=== PATIENT | female | born 1950 | race Two or more races ===

== ENCOUNTER 2016-08-09 08:26 | Outpatient (CLI) | payer MEDICARE, OTHER | END 2016-08-09 08:27 | disposition home or self-care (01) | DX: R00.2 Palpitations (principal) ==

== ENCOUNTER 2016-10-31 10:05 | Outpatient (CLI) | payer MEDICARE, OTHER | END 2016-10-31 10:06 | disposition home or self-care (01) | DX: Z72.89 Other problems related to lifestyle (principal) ==

== ENCOUNTER 2016-11-06 07:38 | Outpatient (CLI) | payer MEDICARE, OTHER ==
--- NOTE | 2016-11-06 09:38 | Ultrasound Report ---
PELVIC ULTRASOUND: 11/06/2016 CLINICAL INDICATION: Followup endometrial thickening. COMPARISON: 08/17/2014 TECHNIQUE: Transabdominal pelvic ultrasound performed for global evaluation. Transvaginal pelvic ult rasound performed for detailed evaluation. Real-time scanning performed and static images obtained. FINDINGS: The uterus is anteverted, measuring 5.4 x 3.4 x 2.0 cm. There is persistent nodular thick ening of the left fundal myometrium, measuring 0.7 x 0.7 x 0.4 cm. A fundal posterior leiomyoma is a gain seen, measuring 1.1 x 1.0 x 1.0 cm. The ovaries are unremarkable, with the right measuring 1.4 x 1.0 x 0.7 cm and the left measuring 1.8 x 1.5 x 0.8 cm. No free fluid is present. IMPRESSION: STABLE APPEARANCE OF THE UTERUS, WITH NODULAR THICKENING OF THE LEFT FUNDAL MYOMETRIUM A ND A FUNDAL LEIOMYOMA. JOB #: [id number] EXT JOB #:[id number]
== END 2016-11-06 07:39 | disposition home or self-care (01) ==
LOC: DI 07:38
PROVIDERS: ATTEND Physician Assistant Medical
DX: R93.8 Abnormal findings on diagnostic imaging of other specified body structures (principal); D25.9 Leiomyoma of uterus, unspecified
CPT/HCPCS: 76830; 76856

== ENCOUNTER 2017-11-10 07:52 | Outpatient (CLI) | payer MEDICARE, OTHER ==
[2017-11-10 08:09] LABS: BASOPHILS # (AUTO) 0.1 10^3/uL (0.0-0.1); EOSINOPHILS # (AUTO) 0.1 10^3/uL (0.0-0.7); EOSINOPHILS % (AUTO) 2.7 %; HGB - HEMOGLOBIN 12.8 g/dL (12.0-16.0); LYMPHOCYTES # (AUTO) 0.8 10^3/uL (1.5-3.5); LYMPHOCYTES % (AUTO) 14.5 %; MEAN CORPUSCULAR HEMOGLOBIN 31.5 pg (27.0-31.0); MEAN CORPUSCULAR VOLUME 95.4 fL (81.0-99.0); MEAN PLATELET VOLUME 8.9 fL (7.9-10.8); MONOCYTES # (AUTO) 0.5 10^3/uL (0.0-1.0); MONOCYTES % (AUTO) 9.6 %; NEUTROPHILS # (AUTO) 3.8 10^3/uL (1.5-6.6); NEUTROPHILS % (AUTO) 72.2 %; PLT - PLATELET COUNT 195 10^3/uL (130-450); RED BLOOD COUNT 4.07 10^6/uL (4.20-5.40); RED CELL DISTRIBUTION WIDTH 12.8 % (12.0-15.0); WHITE BLOOD COUNT 5.2 x10^3/uL (4.8-10.8)
[2017-11-10 08:22] LABS: ALBUMIN 3.9 g/dL (3.2-5.5); ALBUMIN/GLOBULIN RATIO 1.6 (1.0-2.2); ALKALINE PHOSPHATASE 73 IU/L (42-121); ALT ALANINE AMINOTRANSFERASE 27 IU/L (10-60); AST ASPARTATE AMINOTRANSFERASE 26 IU/L (10-42); BILIRUBIN,TOTAL 0.9 mg/dL (0.2-1.0); BUN - BLOOD UREA NITROGEN 12 mg/dL (6-20); CALCIUM 8.8 mg/dL (8.5-10.3); CARBON DIOXIDE - CO2 28 mmol/L (21-32); CHLORIDE 103 mmol/L (101-111); CHOL/HDL RATIO 2.8 (<4.4); CHOLESTEROL 196 mg/dL; CREATININE 0.7 mg/dL (0.4-1.0); GFR - MDRD 83 (>89); GLUCOSE 91 mg/dL (70-100); HDL CHOLESTEROL 70 mg/dL; LDL CHOLESTEROL,CALCULATED 109 mg/dL; LDL/HDL RATIO 1.6 (<4.4); SODIUM 138 mmol/L (135-145); TOTAL PROTEIN 6.4 g/dL (6.7-8.2); VLDL CHOLESTEROL 17 mg/dL
== END 2017-11-10 07:53 | disposition home or self-care (01) ==
LOC: LAB 07:52
PROVIDERS: ATTEND Physician Assistant Medical
DX: F41.9 Anxiety disorder, unspecified (principal); Z79.899 Other long term (current) drug therapy; M85.80 Other specified disorders of bone density and structure, unspecified site
CPT/HCPCS: 36415; 80053; 80061; 83721; 84443; 85025

== ENCOUNTER 2017-11-18 09:22 | Outpatient (CLI) | payer MEDICARE, OTHER ==
--- NOTE | 2017-11-18 18:21 | XRAY Report ---
Procedure Date: 11/18/2017 Accession Number: [id number] / [id number] Procedure: XR - Lumbar Spine Complete CPT Code: FULL RESULT: EXAM: Lumbar Spine Complete DATE: 11/18/2017 9:51 AM CLINICAL HISTORY: BACK PAIN, LUMBAR, WITH RADICULOPATHY COMPARISON: None. TECHNIQUE: 5 views. FINDINGS: Alignment: Slight dextroscoliosis. Minimal anterior listhesis L4 on L5 minimal retrolisthesis of L3 with respect L4.. Bones: Five [id number] lumbar vertebral bodies are present. No fractures or bone lesions. Disks: L3-4, L4-5 and L5-S1 disc space narrowing. Facets: Moderate degenerative changes most marked L4-5. Sacroiliac Joints: Unremarkable. Soft Tissues: Unremarkable. IMPRESSION: Degenerative change lumbar spine most marked at L3-S1. Lumbar spinal stenosis may be present but could be best assessed by MRI.. RADIA
== END 2017-11-18 09:23 | disposition home or self-care (01) ==
LOC: DI 09:22
PROVIDERS: ATTEND Physician Assistant Medical
DX: M51.36 Other intervertebral disc degeneration, lumbar region (principal); M47.896 Other spondylosis, lumbar region
CPT/HCPCS: 72110

== ENCOUNTER 2018-02-12 07:21 | Outpatient (CLI) | payer MEDICARE, OTHER | END 2018-02-12 07:22 | disposition home or self-care (01) | LOC: DI 07:21 | PROVIDERS: ATTEND Physician Assistant Medical | DX: Z53.9 Procedure and treatment not carried out, unspecified reason (principal) ==

== ENCOUNTER 2018-02-18 07:25 | Outpatient (CLI) | payer MEDICARE, OTHER ==
--- NOTE | 2018-02-18 14:01 | Ultrasound Report ---
Reason: UTERINE FIBROIDS Procedure Date: 02/18/2018 Accession Number: [id number] / [id number] Procedure: US - Pelvic w/Transvaginal CPT Code: FULL RESULT: EXAM: PELVIC ULTRASOUND EXAM DATE: 02/18/2018 08:41 AM. CLINICAL HISTORY: Uterine fibroids. COMPARISON: Pelvic with transvaginal 11/06/2016 7:50 AM. TECHNIQUE: Realtime transabdominal pelvic scan performed to identify the uterus and adnexa and as an overview of other pelvic structures, followed by transvaginal scan to provide greater detail of the uterus and adnexa, with static image documentation. FINDINGS: Uterus: 5.0 x 1.6 x 3.0 cm, volume 12.5 cc. Anteverted position. Normal overall size and echotexture. Endometrium: Focal thickening of the fundal endometrium without evidence of abnormal vascularity is felt to be within physiologic limits. 4 mm. Cervix: The cervix itself is unremarkable. Adjacent to the cervix is a 1.0 x 1.2 x 1.1 cm myometrial uterine fibroid. A previously seen fundal fibroid now measures 1.3 x 1.1 x 1.3 cm and is partially calcified. Right Ovary: 1.4 x 0.9 x 1.2 cm, volume 0.8 cc. Normal echotexture and blood flow. Left Ovary: 2.1 x 1.4 x 1.4 cm, volume 2.1 cc. Normal echotexture and blood flow. Free Fluid: None. Other: None. IMPRESSION: Uterine fibroids as described. RADIA
== END 2018-02-18 07:26 | disposition home or self-care (01) ==
LOC: DI 07:25
PROVIDERS: ATTEND Physician Assistant Medical
DX: D25.9 Leiomyoma of uterus, unspecified (principal)
CPT/HCPCS: 76830; 76856

== ENCOUNTER 2018-03-30 09:07 | Outpatient (CLI) | payer MEDICARE, OTHER ==
--- NOTE | 2018-03-31 10:55 | DEXA Report ---
Reason: POSTMENOPAUSAL Procedure Date: 03/30/2018 Accession Number: [id number] / [id number] Procedure: DEX - Dexa Spine and/or Hip CPT Code: FULL RESULT: EXAM: Dexa Spine and/or Hip DATE: 03/30/2018 9:43 AM CLINICAL HISTORY: POSTMENOPAUSAL TECHNIQUE: Dual energy x-ray absorptiometry (DXA) was performed on a [employer] System. Regions measured are the AP Spine, femoral neck, and if needed forearm. COMPARISON: 03/21/2016. In accordance with the International Society for Clinical Densitometry (ISCD) guidelines, data from previous exams may be reanalyzed using current recommendations and techniques. This is done to allow a more accurate basis for comparison with the current study. FINDINGS: The data for the lumbar spine is as follows: BMD (g/cm/cm) T-SCORE Z-SCORE REGION L1 0.883 -2.1 -0.5 L2 1.005 -1.6 -0.1 L3 1.015 -1.5 0.0 L4 1.096 -0.9 0.7 TOTAL 1.013 -1.4 0.1 NOTE: All evaluable vertebrae are used for classification The data for the hip is as follows: BMD (g/cm/cm) T-SCORE Z-SCORE REGION Neck 0.896 -1.0 0.5 TOTAL 0.880 -1.0 0.3 NOTE: The femoral neck or total proximal femur, whichever is lowest, is used for classification. DXA RESULTS SUMMARY: Spine SCAN DATE AGE BMD CHANGE VS CHANGE VS PREVIOUS PREVIOUS % 2/[birth year][age] 1.013 0.033* 3.4* 03/21/2016 [age] 0.980 * Denotes significant change at the 95% confidence level. Denotes dissimilar scan types or analysis methods. DXA RESULTS SUMMARY: Hip SCAN DATE AGE BMD CHANGE VS CHANGE VS PREVIOUS PREVIOUS % [birth year]2018 68.2 0.880 0.003 0.3 03[age]21[birth year]2016 66.1 0.877 * Denotes significant change at the 95% confidence level. Denotes dissimilar scan types or analysis methods. IMPRESSION: THE WHO CLASSIFICATION BASED ON THE INTERNATIONAL REFERENCE STANDARD IS OSTEOPENIA. THE FRACTURE RISK IS INCREASED. RECOMMENDATION: Patients with diagnosis of osteoporosis or osteopenia should have regular bone mineral density assessment. For those eligible for Medicare, routine testing is allowed once every 2 years. Testing frequency can be increased for patients who have rapidly progressing disease or for those who are receiving medical therapy to restore bone mass. COMMENT: World Health Organization (WHO) definitions for osteoporosis and osteopenia: NORMAL BMD: T-score at -1.0 or higher, fracture risk is low OSTEOPENIA BMD: T-score between -1.0 and -2.5, fracture risk is increased. OSTEOPOROSIS BMD: T-score at -2.5 or lower, fracture risk is high. National Osteoporosis Foundation recommends: 1. Obtain adequate dietary calcium (at least 1200 mg per day) and vitamin D (400-800 international units per day). 2. Participate, as appropriate, in regular weightbearing and muscle-strengthening exercise. 3. Avoid tobacco use and reduce alcohol and caffeine intake. 4. For more detailed information see the website at www.NOF.org.
== END 2018-03-30 09:08 | disposition home or self-care (01) ==
LOC: DI 09:07
PROVIDERS: ATTEND Physician Assistant Medical
DX: M85.89 Other specified disorders of bone density and structure, multiple sites (principal); Z78.0 Asymptomatic menopausal state
CPT/HCPCS: 77080

== ENCOUNTER 2018-04-08 08:07 | Outpatient (CLI) | payer MEDICARE, OTHER ==
--- NOTE | 2018-04-10 11:48 | Mammography Report ---
Reason: MAMMOGRAPHIC SCREENING FOR BREAST CANCER Procedure Date: 04/08/2018 Accession Number: [id number] / [id number] Procedure: AKHIL - Screening Mammo Dig Bilat CPT Code: FULL RESULT: EXAM: Screening Mammo Dig Bilat DATE: 04/08/2018 8:36 AM CLINICAL HISTORY: TECHNIQUE: Bilateral CC and MLO views were obtained. COMPARISON: 03/21/2016 through 02/09/2013 FINDINGS: The breasts demonstrate scattered fibroglandular densities bilaterally. There are stable operative changes from prior excisional biopsy left breast. There are no suspicious masses, calcifications or areas of distortion. There is suboptimal inclusion of posterior tissues on the right MLO view compared to prior exams IMPRESSION: Incomplete examination RECOMMENDATION: Right breast: Technical repeat MLO view for posterior tissues. An addendum to this report will be issued when these images become available. Left breast: Recommend annual screening mammography. BI-RADS CATEGORY 0: Incomplete examination STANDARD QUALIFYING STATEMENTS: 1. This examination was not reviewed with the aid of Computer-Aided Detection (CAD). 2. A negative or benign imaging report should not preclude biopsy if clinically suspicious findings are present. 3. Dense breasts may obscure an underlying neoplasm. 4. This examination was reviewed without the aid of 3D breast imaging (tomosynthesis).
== END 2018-04-08 08:08 | disposition home or self-care (01) ==
LOC: DI 08:07
PROVIDERS: ATTEND Physician Assistant Medical
DX: Z12.31 Encounter for screening mammogram for malignant neoplasm of breast (principal); R92.2 Inconclusive mammogram
CPT/HCPCS: 77067

== ENCOUNTER 2018-05-12 13:09 | Outpatient (CLI) | payer MEDICARE, OTHER ==
--- NOTE | 2018-05-12 15:38 | Mammography Report ---
Reason: TECH REPEAT - ROUTINE MAMMO Procedure Date: 05/12/2018 Accession Number: [id number] / [id number] Procedure: AKHIL - No Charge Procedure CPT Code: FULL RESULT: EXAM: No Charge Procedure, Screening Mammo Dig Bilat DATE: 05/12/2018 1:51 PM CLINICAL HISTORY: Screening mammogram with technical repeat of the right MLO view. History of nulliparity. TECHNIQUE: Bilateral CC and MLO views were obtained. COMPARISON: 03/21/2016 through 02/09/2013 FINDINGS: The breasts demonstrate scattered fibroglandular densities bilaterally. There are stable operative changes from prior excisional biopsy left breast. There are no suspicious masses, calcifications or areas of distortion. IMPRESSION: Benign findings RECOMMENDATION: Routine annual screening unless otherwise clinically indicated. BI-RADS CATEGORY 2: Benign findings STANDARD QUALIFYING STATEMENTS: 1. This examination was not reviewed with the aid of Computer-Aided Detection (CAD). 2. A negative or benign imaging report should not preclude biopsy if clinically suspicious findings are present. 3. Dense breasts may obscure an underlying neoplasm. 4. This examination was reviewed with the aid of 3D breast imaging (tomosynthesis) of the right breast in MLO projection.
--- NOTE | 2018-05-12 15:38 | Mammography Report ---
Reason: TECH REPEAT - ROUTINE MAMMO Procedure Date: 05/12/2018 Accession Number: [id number] / [id number] Procedure: AKHIL - Screening Mammo Dig Bilat CPT Code: FULL RESULT: EXAM: No Charge Procedure, Screening Mammo Dig Bilat DATE: 05/12/2018 1:51 PM CLINICAL HISTORY: Screening mammogram with technical repeat of the right MLO view. History of nulliparity. TECHNIQUE: Bilateral CC and MLO views were obtained. COMPARISON: 03/21/2016 through 02/09/2013 FINDINGS: The breasts demonstrate scattered fibroglandular densities bilaterally. There are stable operative changes from prior excisional biopsy left breast. There are no suspicious masses, calcifications or areas of distortion. IMPRESSION: Benign findings RECOMMENDATION: Routine annual screening unless otherwise clinically indicated. BI-RADS CATEGORY 2: Benign findings STANDARD QUALIFYING STATEMENTS: 1. This examination was not reviewed with the aid of Computer-Aided Detection (CAD). 2. A negative or benign imaging report should not preclude biopsy if clinically suspicious findings are present. 3. Dense breasts may obscure an underlying neoplasm. 4. This examination was reviewed with the aid of 3D breast imaging (tomosynthesis) of the right breast in MLO projection.
== END 2018-05-12 13:10 | disposition home or self-care (01) ==
LOC: DI 13:09
PROVIDERS: ATTEND Physician Assistant Medical
DX: Z12.31 Encounter for screening mammogram for malignant neoplasm of breast (principal)
CPT/HCPCS: 77067

== ENCOUNTER 2018-12-14 07:08 | Outpatient (CLI) | payer MEDICARE, OTHER ==
[2018-12-14 08:19] LABS: ALBUMIN/GLOBULIN RATIO 1.5 (1.0-2.2); ALKALINE PHOSPHATASE 67 IU/L (42-121); ALT ALANINE AMINOTRANSFERASE 17 IU/L (10-60); AST ASPARTATE AMINOTRANSFERASE 19 IU/L (10-42); BILIRUBIN,TOTAL 0.9 mg/dL (0.2-1.0); BUN - BLOOD UREA NITROGEN 21 mg/dL (6-20); CALCIUM 9.2 mg/dL (8.5-10.3); CARBON DIOXIDE - CO2 26 mmol/L (21-32); CHLORIDE 106 mmol/L (101-111); CHOL/HDL RATIO 3.1 (<4.4); CHOLESTEROL 192 mg/dL; CREATININE 0.8 mg/dL (0.4-1.0); GFR - MDRD 71 (>89); GLUCOSE 87 mg/dL (70-100); HDL CHOLESTEROL 62 mg/dL; LDL CHOLESTEROL,CALCULATED 118 mg/dL; LDL/HDL RATIO 1.9 (<4.4); SODIUM 143 mmol/L (135-145); TOTAL PROTEIN 6.6 g/dL (6.7-8.2); VLDL CHOLESTEROL 12 mg/dL
[2018-12-14 08:47] LABS: BASOPHILS # (AUTO) 0.1 10^3/uL (0.0-0.1); BASOPHILS % (AUTO) 1.3 %; EOSINOPHILS # (AUTO) 0.1 10^3/uL (0.0-0.7); EOSINOPHILS % (AUTO) 1.3 %; HGB - HEMOGLOBIN 12.5 g/dL (12.0-16.0); LYMPHOCYTES # (AUTO) 0.9 10^3/uL (1.5-3.5); LYMPHOCYTES % (AUTO) 15.7 %; MEAN CORPUSCULAR HEMOGLOBIN 30.5 pg (27.0-31.0); MEAN CORPUSCULAR HGB CONC 31.4 g/dL (32.0-36.0); MEAN CORPUSCULAR VOLUME 97.1 fL (81.0-99.0); MEAN PLATELET VOLUME 11.2 fL (7.9-10.8); MONOCYTES # (AUTO) 0.6 10^3/uL (0.0-1.0); MONOCYTES % (AUTO) 11.1 %; NEUTROPHILS # (AUTO) 3.9 10^3/uL (1.5-6.6); NEUTROPHILS % (AUTO) 70.4 %; PLT - PLATELET COUNT 205 10^3/uL (130-450); RED CELL DISTRIBUTION WIDTH 12.1 % (12.0-15.0); WHITE BLOOD COUNT 5.5 x10^3/uL (4.8-10.8)
== END 2018-12-14 07:09 | disposition home or self-care (01) ==
LOC: LAB 07:08
PROVIDERS: ATTEND Nurse Practitioner
DX: Z00.00 Encounter for general adult medical examination without abnormal findings (principal); Z79.899 Other long term (current) drug therapy
CPT/HCPCS: 36415; 80053; 80061; 83721; 84443; 85025

== ENCOUNTER 2019-05-05 09:30 | Outpatient (CLI) | payer MEDICARE, OTHER ==
--- NOTE | 2019-05-05 12:29 | Mammography Report ---
Reason: SCREENING FOR BREAST CANCER Procedure Date: 05/05/2019 Accession Number: [id number] / [id number] Procedure: AKHIL - Screening Mammo w/Eleazar CPT Code: Final Report FULL RESULT: EXAM: Screening Mammo w/Eleazar DATE: 05/05/2019 10:30 AM CLINICAL HISTORY: The patient is an asymptomatic 69-year-old female. Nulliparous. No personal nor family history breast cancer. Prior benign left breast excisional biopsy. TECHNIQUE: (B) - Bilateral CC and MLO views were obtained. COMPARISON: 04/08/2018, 03/21/2016, 03/14/2015 and 02/11/2014 PARENCHYMAL PATTERN: (A) - The breasts demonstrate scattered fibroglandular densities bilaterally. FINDINGS: Stable dystrophic ulcerations in the right breast. Postbiopsy changes again noted in the left breast. There are no suspicious masses, calcifications, or areas of distortion. IMPRESSION: Benign findings. BI-RADS category 2. RECOMMENDATION: (ANNUAL) - Recommend routine annual screening mammography. BI-RADS CATEGORY: Benign findings. BI-RADS category 2. STANDARD QUALIFYING STATEMENTS: 1. This examination was not reviewed with the aid of Computer-Aided Detection (CAD). 2. A negative or benign imaging report should not preclude biopsy if clinically suspicious findings are present. 3. Dense breasts may obscure an underlying neoplasm. 4. This examination was reviewed with the aid of 3D breast imaging (tomosynthesis).
== END 2019-05-05 09:31 | disposition home or self-care (01) ==
LOC: DI 09:30
PROVIDERS: ATTEND Nurse Practitioner
DX: Z12.31 Encounter for screening mammogram for malignant neoplasm of breast (principal)
CPT/HCPCS: 77063; 77067

== ENCOUNTER 2020-04-13 08:14 | Outpatient (CLI) | payer MEDICARE ==
--- NOTE | 2020-04-13 10:06 | MRI Report ---
PROCEDURE: Lumbar Spine W/O INDICATIONS: LUMBAR DDD, LUMBAR BACK PAIN W/ RADICULOPATHY TECHNIQUE: Noncontrast sagittal T1 spin echo and T2 fast echo, sagittal STIR, axial T1 and T2 fast spin echo thr ough the lumbar spine. In cases with scoliosis, additional coronal T2 fast spin echo may be performe d. COMPARISON: Correlation is made with prior lumbar radiographs 11/17/2017. FINDINGS: Image quality: Motion artifact is noted. Alignment and Curvature: There is minimal retrolisthesis at L1-L2, L2-L3, and L3-L4. Mild dextroconv ex thoracolumbar scoliotic curvature can be seen on the compliance counsel images. Bone Marrow: Marrow is of normal overall signal. Scattered foci of T1-weighted hyperintensity and T2-weighted hyperintensity are seen, without increased STIR signal. These foci are attributed to tony gn vertebral body hemangiomas. No acute vertebral body compression fractures. Spinal Cord: Conus medullaris terminates at the L1 level. Visualized cord demonstrates normal signa l and size. Paraspinous Soft Tissues: No paravertebral masses. T12-L1: Normal in appearance. L1-L2: Mild loss of disc height and disc signal are seen. Mild disc bulge is seen. Mild facet hypertrophy is seen. There is moderate left-sided and mild right-sided neuroforaminal narrowing seen . Mild central canal narrowing is seen. L2-L3: The disc height is well-preserved. There is loss of disc signal seen. Moderate disc bulge is seen at this level. Reactive marrow endplate changes are seen posteriorly, which are on hypointe nse on T1-weighted and hyperintense T2-weighted imaging, with associated increased STIR signal. The se imaging findings are most consistent with endplate edema (Modic type 1 change). Mild to moderate facet hypertrophy is seen. Moderate bilateral neuroforaminal narrowing is seen, left worse than righ t. Moderate central canal narrowing is seen. L3-L4: The disc height is well-preserved. There is loss of disc signal seen. Moderate disc bulge is seen, with a mild central disc protrusion. Mild to moderate facet hypertrophy is seen. Associated hy pertrophy of the ligamentum flavum can be seen. Moderate bilateral neural foraminal narrowing is se en. Moderate central canal narrowing is seen. L4-L5: The disc height is well-preserved. There is loss of disc signal seen. Mild to moderate disc bulge is seen, which is eccentric to the right. Moderate to prominent facet hypertrophy is seen, righ t worse than left. Moderate bilateral neural foraminal narrowing is seen. Mild central canal narro wing is seen. L5-S1: Moderate loss of disc height and signal are seen. Moderate disc bulge is seen at this level . Mild facet hypertrophy is seen. Moderate to severe bilateral neuroforaminal narrowing can be see n, right worse than left. Compression is seen upon the exiting nerve roots. Mild central canal doretha rowing is seen. IMPRESSION: Multiple levels of lumbar spine degenerative change are seen, which are overall most pro minent at the L5-S1 level. Reviewed by: Brad Yoder MD on 04/13/2020 9:05 AM [place] Approved by: Brad Yoder MD on 04/13/2020 9:05 AM [facility] Station ID: [id number]
== END 2020-04-13 08:15 | disposition home or self-care (01) ==
LOC: DI 08:14
PROVIDERS: ATTEND Nurse Practitioner
DX: M47.816 Spondylosis without myelopathy or radiculopathy, lumbar region (principal); M51.26 Other intervertebral disc displacement, lumbar region; M48.061 Spinal stenosis, lumbar region without neurogenic claudication; M51.37 Other intervertebral disc degeneration, lumbosacral region; M47.817 Spondylosis without myelopathy or radiculopathy, lumbosacral region; M48.07 Spinal stenosis, lumbosacral region
CPT/HCPCS: 72148

== ENCOUNTER 2021-02-27 11:10 | Outpatient (CLI) | payer MEDICARE ==
--- NOTE | 2021-02-28 09:35 | Mammography Report ---
BILATERAL DIGITAL SCREENING MAMMOGRAM 3D/2D: 02/27/2021 CLINICAL: Routine screening. Comparison is made to exams dated: 05/05/2019 mammogram, 05/12/2018 mammogram, 04/08/2018 mammogram, 1 mammogram, 03/14/2015 mammogram, and 02/11/2014 mammogram - [facility]. T here are scattered fibroglandular elements in both breasts. No significant masses, calcifications, or other findings are seen in either breast. There has been no significant interval change. IMPRESSION: NEGATIVE There is no mammographic evidence of malignancy. A 1 year screening mammogram is recommended. This exam was interpreted at Station ID: [id number]. NOTE: For mammograms, a report in lay terms will be sent to the patient. Approximately 15% of breast malignancies will not be visualized mammographically. In the management of a palpable breast mass, a negative mammogram must not discourage biopsy of a clinically suspicious lesion. Electronically Signed By: Seng Chen M.D. ddp/penrad:02/27/2021 13:27:49 ACR BI-RADS Category 1: Negative 3341F PARENCHYMAL PATTERN: (A) - The breast(s) demonstrate(s) scattered fibroglandular densities. BI-RADS CATEGORY: (1) - 1 RECOMMENDATION: (ANNUAL) - Recommend routine annual screening mammography. [id number] 1 year screening LATERALITY: (B)
== END 2021-02-27 11:11 | disposition home or self-care (01) ==
LOC: DI 11:10
PROVIDERS: ATTEND Internal Medicine
DX: Z12.31 Encounter for screening mammogram for malignant neoplasm of breast (principal)

== ENCOUNTER 2021-03-01 17:19 | Outpatient (CLI) | payer MEDICARE ==
[2021-03-01 17:54] LABS: CREATININE 0.9 mg/dL (0.4-1.0)
[2021-03-01] MEDS ORDERED: IOVERSOL 320 100 ML VIAL IVP ONE ×2 (17:58→21:24)
[2021-03-01] MEDS ORDERED: IOVERSOL 320 50 ML VIAL ONE (17:59)
--- NOTE | 2021-03-01 20:17 | CT Report ---
PROCEDURE: Abdomen/Pelvis W INDICATIONS: LLQ pain x 1 week CONTRAST: IV CONTRAST: Optiray 320 ml: 100 PO CONTRAST: Optiray 320 ml50 TECHNIQUE: After the administration of oral and IV contrast, 5 mm thick sections acquired from the diaphragms to the symphysis. 5 mm thick coronal and sagittal reformats were acquired. For radiation dose reducti on, the following was used: automated exposure control, adjustment of mA and/or kV according to sampson ent size. COMPARISON: None. FINDINGS: ABDOMEN: Lung bases: No acute findings. Heart:Normal in size. No pericardial effusion. Liver: Normal. Gallbladder: Unremarkable. Bile ducts: Normal. Pancreas: Normal. Spleen: Normal. Adrenals: Normal. Kidneys and ureters: Normal. Stomach and duodenum: Normal. Bowel: The appendix is not clearly identified however no suspicious inflammatory changes in the right lower quadrant. Other: No free fluid or air. Abdominal nodes: Normal. Aorta: Normal in size. IVC: Normal. Ventral wall: Normal. PELVIS: Bladder: Normal. Pelvic nodes: Normal. Inguinal: No hernia. Bones: No vertebral body compression fracture. No suspicious bone lesion. IMPRESSION: Overall, no acute abnormality . The appendix is not clearly identified however no suspicious inflamma tory changes in the right lower quadrant. Reviewed by: Dirk uCrry MD on 03/01/2021 8:16 PM PDT Approved by: Dirk Curry MD on 03/01/2021 8:16 PM PDT Station ID: [id number]
[2021-03-01] MEDS ORDERED: IOVERSOL 320 50 ML VIAL PO ONE (21:24)
== END 2021-03-01 17:20 | disposition home or self-care (01) ==
LOC: DI 17:19
PROVIDERS: ATTEND Internal Medicine
DX: R10.32 Left lower quadrant pain (principal); Z79.899 Other long term (current) drug therapy
CPT/HCPCS: 36415; 74177; 82565; Q9967

== ENCOUNTER 2021-03-12 08:12 | Outpatient (CLI) | payer MEDICARE ==
--- NOTE | 2021-03-12 14:52 | Ultrasound Report ---
PROCEDURE: Pelvic w/Transvaginal INDICATIONS: L OVARIAN PAIN TECHNIQUE: Real-time scanning was performed of the pelvic organs, with image documentation. Additional endovagi nal scanning was necessary due to incomplete visualization of the adnexal and endometrial structures by transabdominal scanning. COMPARISON: Ultrasound pelvis 02/18/2018 FINDINGS: No pathologic free abdominal or pelvic fluid. Uterus: Uterus is normal in size at 4.9 x 1.8 x 4.2 cm. The endometrium measures 3.4 mm in combined thickness. There is a polyp appearing focus within the endometrium measuring 6 x 4 x 6 mm. Within the mid intramural portion of the uterus is a 1.1 x 1.1 x 1.1 cm focus of heterogeneous echoge nicity present measuring 1.0 x 1.2 x 1.3 cm. Areas of calcification are noted. In addition, there is a focus of decreased echogenicity at the cervix measuring 1.2 x 1.2 x 1.1 cm. Ovaries: Right ovary measures 1.7 x 1.0 x 1.0 cm, volume 0.9 cc. Left ovary measures 2.0 x 1.2 x 1.0 cm, volume 1.2 cc. IMPRESSION: 1. Minimally decreased size of uterine fibroid. 2. Focus of decreased echogenicity within the cervix not well seen. This could represent a second fib roid. Short interval imaging follow-up or direct visualization is recommended. Reviewed by: Asha Conway MD on 03/12/2021 2:50 PM PDT Approved by: Asha Conway MD on 03/12/2021 2:50 PM PDT Station ID: [id number]
== END 2021-03-12 08:13 | disposition home or self-care (01) ==
LOC: DI 08:12
PROVIDERS: ATTEND Internal Medicine
DX: R10.32 Left lower quadrant pain (principal); D25.1 Intramural leiomyoma of uterus; R93.89 Abnormal findings on diagnostic imaging of other specified body structures

== ENCOUNTER 2021-04-23 08:14 | Outpatient (CLI) | payer MEDICARE ==
--- NOTE | 2021-04-23 09:53 | DEXA Report ---
PROCEDURE: Dexa Spine and/or Hip INDICATIONS: POST MENOPAUSAL TECHNIQUE: Dual energy x-ray absorptiometry (DXA) was performed on a [employer] System. Regions measur ed are the AP Spine, femoral neck, and if needed forearm. COMPARISON: None. FINDINGS: Lumbar Spine: Bone Mineral Density 0.964 g/cm/cm,T score -1.8, osteopenia Left Hip: Bone Mineral Density 0.829 g/cm/cm,T score -1.4, osteopenia Left Femoral Neck: Bone Mineral Density 25 9 g/cm/cm, T score -1.3, osteopenia (T score greater or equal to -1.0: NORMAL) (T score from -1.1 to -2.4: OSTEOPENIA) (T score less than or equal to -2.5 to: OSTEOPOROSIS) Impression: Bone mineral density consistent with osteopenia Patients with diagnosis of osteoporosis or osteopenia should have regular bone mineral density assess ment. For those eligible for Medicare, routine testing is allowed once every 2 years. Testing frequ ency can be increased for patients who have rapidly progressing disease or for those who are receivin g medical therapy to restore bone mass. Reviewed by: Mejia Licona on 04/23/2021 9:52 AM PST Approved by: Mejia Licona on 04/23/2021 9:52 AM PST Station ID: [id number]
== END 2021-04-23 08:15 | disposition home or self-care (01) ==
LOC: DI 08:14
PROVIDERS: ATTEND Internal Medicine
DX: Z78.0 Asymptomatic menopausal state (principal); M85.89 Other specified disorders of bone density and structure, multiple sites

== ENCOUNTER 2021-05-30 10:10 | Outpatient (CLI) | payer MEDICARE ==
--- NOTE | 2021-05-30 10:49 | XRAY Report ---
PROCEDURE: Shoulder 3 View RT INDICATIONS: SHOULDER PAIN TECHNIQUE: 3 views of the shoulder were acquired. COMPARISON: None. FINDINGS: Bones: No fractures or dislocations. No suspicious bony lesions. Visualized ribs appear intact. M ild articular osteophyte formation at the acromioclavicular and glenohumeral joints. Soft tissues: No suspicious soft tissue calcifications. IMPRESSION: Osteoarthritis. No acute fracture. No osseous lesion. If symptoms and/or clinical suspic ion for pathology continue, further assessment with repeat plain films, or advanced imaging (e.g., CT , MRI, or bone scan) is recommended for further assessment. Reviewed by: Dewey Neumann MD on 05/30/2021 10:48 AM [facility] Approved by: Dewey Neumann MD on 05/30/2021 10:48 AM [facility] Station ID: [id number]
== END 2021-05-30 10:11 | disposition home or self-care (01) ==
LOC: DI 10:10
PROVIDERS: ATTEND Internal Medicine
DX: M19.011 Primary osteoarthritis, right shoulder (principal)

== ENCOUNTER 2022-08-16 09:18 | Outpatient (CLI) | payer MEDICARE ==
--- NOTE | 2022-08-19 10:40 | Mammography Report ---
BILATERAL DIGITAL SCREENING MAMMOGRAM 3D/2D: 08/16/2022 CLINICAL: Routine screening. Comparison is made to exams dated: 02/27/2021 mammogram, 05/05/2019 mammogram, 05/12/2018 mammogram, 06/08/2017 mammogram, 03/21/2016 mammogram, and 03/14/2015 mammogram - [facility]. There are scattered areas of fibroglandular density in both breasts (category b / 25%-50% glandular t issue). No significant masses, calcifications, or other findings are seen in either breast. There has been no significant interval change. IMPRESSION: NEGATIVE There is no mammographic evidence of malignancy. A 1 year screening mammogram is recommended. Based on the Tyrer Cuzick model (a risk assessment model) the patients lifetime risk is 4.5% and her 10 year risk is 3.6%. According to the ACR, ACS, and NCCN guidelines, an annual breast MRI exam reji g with mammogram is recommended if the patients lifetime risk is 20% or greater. This exam was interpreted at Station ID: [id number]. NOTE: For mammograms, a report in lay terms will be sent to the patient. Approximately 15% of breast malignancies will not be visualized mammographically. In the management of a palpable breast mass, a negative mammogram must not discourage biopsy of a clinically suspicious lesion. Electronically Signed By: Qian juarez/daria:08/16/2022 17:33:01 letter sent: No_Letter ACR BI-RADS Category 1: Negative 3341F PARENCHYMAL PATTERN: (A) - The breast(s) demonstrate(s) scattered fibroglandular densities. BI-RADS CATEGORY: (1) - 1 Mammogram [id number] 1 year screening LATERALITY: (B)
== END 2022-08-16 09:19 | disposition home or self-care (01) ==
LOC: DI 09:18
PROVIDERS: ATTEND Internal Medicine
DX: Z12.31 Encounter for screening mammogram for malignant neoplasm of breast (principal)

== ENCOUNTER 2023-07-21 07:55 | Outpatient (CLI) | payer MEDICARE ==
[2023-07-21 08:22] LABS: BASOPHILS # (AUTO) 0.1 10^3/uL (0.0-0.1); BASOPHILS % (AUTO) 1.1 %; EOSINOPHILS # (AUTO) 0.1 10^3/uL (0.0-0.7); EOSINOPHILS % (AUTO) 1.9 %; HCT - HEMATOCRIT 36.7 % (37.0-47.0); HGB - HEMOGLOBIN 11.8 g/dL (12.0-16.0); LYMPHOCYTES # (AUTO) 0.8 10^3/uL (1.5-3.5); LYMPHOCYTES % (AUTO) 14.9 %; MEAN CORPUSCULAR HEMOGLOBIN 31.8 pg (27.0-31.0); MEAN CORPUSCULAR HGB CONC 32.2 g/dL (32.0-36.0); MEAN CORPUSCULAR VOLUME 98.9 fL (81.0-99.0); MEAN PLATELET VOLUME 10.4 fL (7.9-10.8); MONOCYTES # (AUTO) 0.6 10^3/uL (0.0-1.0); MONOCYTES % (AUTO) 10.6 %; NEUTROPHILS # (AUTO) 3.8 10^3/uL (1.5-6.6); NEUTROPHILS % (AUTO) 71.1 %; PLT - PLATELET COUNT 171 10^3/uL (130-450); RED BLOOD COUNT 3.71 10^6/uL (4.20-5.40); RED CELL DISTRIBUTION WIDTH 11.9 % (12.0-15.0); WHITE BLOOD COUNT 5.4 x10^3/uL (4.8-10.8)
[2023-07-21 08:36] LABS: ALBUMIN 3.9 g/dL (3.2-5.5); ALKALINE PHOSPHATASE 62 IU/L (42-121); ALT ALANINE AMINOTRANSFERASE 19 IU/L (10-60); AST ASPARTATE AMINOTRANSFERASE 21 IU/L (10-42); BILIRUBIN,TOTAL 0.9 mg/dL (0.2-1.0); BUN - BLOOD UREA NITROGEN 14 mg/dL (6-20); CALCIUM 8.8 mg/dL (8.5-10.3); CARBON DIOXIDE - CO2 29 mmol/L (21-32); CHLORIDE 102 mmol/L (101-111); CHOL/HDL RATIO 2.7 (<4.4); CHOLESTEROL 183 mg/dL; CREATININE 0.7 mg/dL (0.6-1.3); GFR - MDRD 82 (>89); GLUCOSE 88 mg/dL (74-104); HDL CHOLESTEROL 68 mg/dL; LDL CHOLESTEROL,CALCULATED 98 mg/dL; LDL/HDL RATIO 1.4 (<4.4); POTASSIUM 3.9 mmol/L (3.5-4.5); SODIUM 135 mmol/L (135-145); TOTAL PROTEIN 5.9 g/dL (6.4-8.9); TRIGLYCERIDES 83 mg/dL (48-352); VLDL CHOLESTEROL 17 mg/dL
== END 2023-07-21 07:56 | disposition home or self-care (01) ==
LOC: LAB 07:55
PROVIDERS: ATTEND Internal Medicine
DX: E05.90 Thyrotoxicosis, unspecified without thyrotoxic crisis or storm (principal); F41.9 Anxiety disorder, unspecified; Z79.899 Other long term (current) drug therapy
CPT/HCPCS: 36415; 80053; 80061; 83721; 84439; 84443; 85025

== ENCOUNTER 2023-08-27 12:51 | Outpatient (CLI) | payer MEDICARE ==
--- NOTE | 2023-08-28 09:56 | Mammography Report ---
BILATERAL DIGITAL SCREENING MAMMOGRAM 3D/2D: 08/27/2023 CLINICAL: Routine screening. Comparison is made to exams dated: 08/16/2022 mammogram, 02/27/2021 mammogram, 05/05/2019 mammogram, an d 05/12/2018 mammogram - [facility]. There are scattered areas of fibroglandular density in both breasts (category b / 25%-50% glandular t issue). There are benign calcifications in the right breast. There also are benign post operative findings i n the left breast. No significant masses, calcifications, or other findings are seen in either breast. There has been no significant interval change. IMPRESSION: BENIGN There is no mammographic evidence of malignancy. A 1 year screening mammogram is recommended. Based on the Tyrer Cuzick model (a risk assessment model) the patient's lifetime risk is 4.2% and her 10 year risk is 3.7%. According to the ACR, ACS, and NCCN guidelines, an annual breast MRI exam reji g with mammogram is recommended if the patient's lifetime risk is 20% or greater. This exam was interpreted at Station ID: [id number]. NOTE: For mammograms, a report in lay terms will be sent to the patient. Approximately 15% of breast malignancies will not be visualized mammographically. In the management of a palpable breast mass, a negative mammogram must not discourage biopsy of a clinically suspicious lesion. Electronically Signed By: Britton morgan/daria:08/27/2023 17:36:42 letter sent: No_Letter ACR BI-RADS Category 2: Benign Finding(s) 3342F PARENCHYMAL PATTERN: (A) - The breast(s) demonstrate(s) scattered fibroglandular densities. BI-RADS CATEGORY: (2) - 2 RECOMMENDATION: (ANNUAL) - Recommend routine annual screening mammography. [id number] 1 year screening LATERALITY: (B)
== END 2023-08-27 12:52 | disposition home or self-care (01) ==
LOC: DI 12:51
PROVIDERS: ATTEND Internal Medicine
DX: Z12.31 Encounter for screening mammogram for malignant neoplasm of breast (principal); R92.323 Mammographic fibroglandular density, bilateral breasts

== ENCOUNTER 2024-01-21 10:38 | Outpatient (CLI) | payer MEDICARE ==
--- NOTE | 2024-01-21 16:59 | CT Report ---
PROCEDURE: Head WO INDICATIONS: HEADACHE, HEAD INJURY TECHNIQUE: Noncontrast 4.5 mm thick angled axial sections acquired from the foramen magnum to the vertex. For r adiation dose reduction, the following was used: automated exposure control, adjustment of mA and/or kV according to patient size. COMPARISON: None. FINDINGS: Image quality: Excellent. The ventricular system and cortical sulci demonstrate atrophy, consistent for patient's stated age. There are areas of hypodensity in the periventricular and subcortical whi te matter. There is no acute intra or extra-axial fluid collection. No acute hemorrhage, mass lesio n or midline shift. Brainstem is unremarkable. Globes are symmetrical. Sinuses are aerated. Osseous structures are intact. IMPRESSION: 1. No acute intracranial process. 2. Mild to moderate atrophy and chronic microvascular ischemic changes. Reviewed by: Asha Conway MD on 01/21/2024 4:58 PM PDT Approved by: Asha Conway MD on 01/21/2024 4:58 PM PDT Station ID: [id number]
== END 2024-01-21 10:39 | disposition home or self-care (01) ==
LOC: DI 10:38
PROVIDERS: ATTEND Internal Medicine
DX: S09.90XA Unspecified injury of head, initial encounter (principal); R51.9 Headache, unspecified; G31.89 Other specified degenerative diseases of nervous system; I67.82 Cerebral ischemia

== ENCOUNTER 2024-02-16 07:42 | Outpatient (CLI) | payer MEDICARE ==
[2024-02-16 07:56] LABS: BASOPHILS # (AUTO) 0.1 10^3/uL (0.0-0.1); EOSINOPHILS % (AUTO) 0.4 %; LYMPHOCYTES # (AUTO) 0.5 10^3/uL (1.5-3.5); LYMPHOCYTES % (AUTO) 7.4 %; MEAN CORPUSCULAR HEMOGLOBIN 30.8 pg (27.0-31.0); MEAN CORPUSCULAR HGB CONC 31.6 g/dL (32.0-36.0); MEAN CORPUSCULAR VOLUME 97.7 fL (81.0-99.0); MEAN PLATELET VOLUME 10.8 fL (7.9-10.8); MONOCYTES # (AUTO) 0.7 10^3/uL (0.0-1.0); MONOCYTES % (AUTO) 8.9 %; PLT - PLATELET COUNT 182 10^3/uL (130-450); RED BLOOD COUNT 3.89 10^6/uL (4.20-5.40); RED CELL DISTRIBUTION WIDTH 12.4 % (12.0-15.0); WHITE BLOOD COUNT 7.3 x10^3/uL (4.8-10.8)
[2024-02-16 08:09] LABS: ALBUMIN 4.3 g/dL (3.2-5.5); ALBUMIN/GLOBULIN RATIO 2.3 (1.0-2.2); ALKALINE PHOSPHATASE 66 IU/L (42-121); ALT ALANINE AMINOTRANSFERASE 26 IU/L (10-60); AST ASPARTATE AMINOTRANSFERASE 24 IU/L (10-42); BUN - BLOOD UREA NITROGEN 18 mg/dL (6-20); CALCIUM 9.4 mg/dL (8.5-10.3); CARBON DIOXIDE - CO2 28 mmol/L (21-32); CHLORIDE 104 mmol/L (101-111); CHOL/HDL RATIO 2.7 (<4.4); CHOLESTEROL 177 mg/dL; CREATININE 0.8 mg/dL (0.6-1.3); GFR - MDRD 70 (>89); GLUCOSE 97 mg/dL (74-104); HDL CHOLESTEROL 66 mg/dL; LDL CHOLESTEROL,CALCULATED 94 mg/dL; LDL/HDL RATIO 1.4 (<4.4); SODIUM 138 mmol/L (135-145); TOTAL PROTEIN 6.2 g/dL (6.4-8.9); TRIGLYCERIDES 85 mg/dL; VLDL CHOLESTEROL 17 mg/dL
[2024-02-16 08:22] LABS: THYROID STIMULATING HORMONE 0.63 uIU/mL (0.34-5.60)
== END 2024-02-16 07:43 | disposition home or self-care (01) ==
LOC: LAB 07:42
PROVIDERS: ATTEND Nurse Practitioner Family
DX: R00.1 Bradycardia, unspecified (principal); E66.3 Overweight; E55.9 Vitamin D deficiency, unspecified; D64.9 Anemia, unspecified
CPT/HCPCS: 36415; 80053; 80061; 82306; 83721; 84443; 85025